=== PATIENT | female | born 1950 | race Hispanic/Latino ===

== ENCOUNTER 2017-05-27 13:41 | Outpatient (CLI) | payer MEDICARE ==
--- NOTE | 2017-05-28 12:48 | Mammography Report ---
BILATERAL DIGITAL SCREENING MAMMOGRAM with CAD: 05/27/17 13:41:00 CLINICAL: Baseline screening. FINDINGS: The breasts are almost entirely fatty.Scattered bilateral benign calcifications. No mass, architectural distortion or suspicious calcifications. IMPRESSION: No mammographic evidence of malignancy. BI-RADS CATEGORY: 2 -- Benign RECOMMENDATION: Routine mammographic screening in one year. COMMENT: Patient follow-up letters are generated by our [employer] application.
== END 2017-05-27 13:42 | disposition home or self-care (01) ==
LOC: SPVWC 13:41
DX: Z12.31 Encounter for screening mammogram for malignant neoplasm of breast (principal)
CPT/HCPCS: 77067; G0202

== ENCOUNTER 2017-11-23 15:54 | Outpatient (CLI) | payer MEDICARE ==
--- NOTE | 2017-11-24 14:15 | XRay Report ---
RIGHT FOOT THREE VIEWS: 11/23/17 CLINICAL: Right foot pain. FINDINGS: Moderate diffuse osteopenia. A transverse mildly displaced fracture of the distal second metatarsal with slight impaction and slight lateral displacement of the major distal fracture fragment. No callus. No other fractures. The joint spaces are normal. A large plantar calcaneal enthesophyte. Moderate soft tissue swelling of the forefoot. No foreign body or soft tissue air. There is a bandage on the forefoot. IMPRESSION: 1.A subacute traumatic mildly displaced closed fracture of the distal second metatarsal. 2. Moderate diffuse osteopenia. 3. Plantar calcaneal enthesopathy. Dr. Faust's office staff was notified of the result by phone toon 11/24/17.
== END 2017-11-23 15:55 | disposition home or self-care (01) ==
LOC: SPVIMAG 15:54
DX: S92.321A Displaced fracture of second metatarsal bone, right foot, initial encounter for closed fracture (principal); M77.31 Calcaneal spur, right foot; M85.88 Other specified disorders of bone density and structure, other site; X58.XXXA Exposure to other specified factors, initial encounter; Y93.89 Activity, other specified; Y92.89 Other specified places as the place of occurrence of the external cause; Y99.8 Other external cause status